=== PATIENT | male | born 1935 | race Caucasian/White ===

== ENCOUNTER 2017-02-22 05:01 | Day surgery (SDC) | payer MEDICARE, BC ==
[~2017-02-22 05:01] MED LIST: ASPIRIN EC81 MG PO; BYSTOLIC5 M1 PO; COZAAR100 M1 PO; COZAAR50 M1 PO; DUTASTERIDE0.5 MG PO; FLOMAX0.4 M1 PO; PRESERVISION A1 EAC5 PO; XARELTO20 M1 PO; ZYLOPRIM100 M1 PO; ZYRTEC10 M7 PO
[2017-02-22 06:01] LABS: PROTHROMBIN TIME 11.9 SECONDS (9.0-13.6)
== END 2017-02-22 10:30 ==
LOC: SRG 05:01 → SHSB 05:07 → ORE 07:04 → PACU 08:02 → SHSB 08:50
PROVIDERS: Student in an Organized Health Care Education/Training Program
PROC: 097G8ZZ Dilation of Left Eustachian Tube, Via Natural or Artificial Opening Endoscopic (ICD-10-PCS; principal; 2017-02-22)
PROC: 097F8ZZ Dilation of Right Eustachian Tube, Via Natural or Artificial Opening Endoscopic (ICD-10-PCS; 2017-02-22)
DX: H69.83 Other specified disorders of Eustachian tube, bilateral (principal); I10 Essential (primary) hypertension; M10.9 Gout, unspecified; I27.2 Other secondary pulmonary hypertension; I48.91 Unspecified atrial fibrillation; Z98.41 Cataract extraction status, right eye; Z98.42 Cataract extraction status, left eye; Z90.49 Acquired absence of other specified parts of digestive tract; Z98.890 Other specified postprocedural states
CPT/HCPCS: C1726; J0171